=== PATIENT | male | born 1975 ===

== ENCOUNTER 2024-11-03 09:07 | Day surgery (SDC) | payer OTHER ==
[~2024-11-03 09:07] MED LIST: Sodium Chloride 0.9% 10 ML Syringe FLUSH PRN; Sodium Chloride 0.9% 10 ML Syringe FLUSH SCH
[2024-11-03] MEDS: Lactated Ringers 1,000 ML IV SCH (09:25)
[2024-11-03] MEDS ORDERED: Lidocaine 1% 4 ML ONE (10:24)
[2024-11-03] MEDS ORDERED: Propofol 200 MG/20 ML SDV ONE ×2 (10:24→10:53)
== END 2024-11-03 11:55 | disposition home or self-care (01) ==
LOC: JD.SDS 09:07
PROVIDERS: ATTEND Surgery
DX: Z12.11 Encounter for screening for malignant neoplasm of colon (principal); D12.3 Benign neoplasm of transverse colon; K64.4 Residual hemorrhoidal skin tags; J45.909 Unspecified asthma, uncomplicated; E78.00 Pure hypercholesterolemia, unspecified; Z79.899 Other long term (current) drug therapy
CPT/HCPCS: 00811; 62320; J2704; J3490; J7120